=== PATIENT | male | born 1935 | race Caucasian/White ===

== ENCOUNTER → 2021-05-14 | Outpatient (CLI) | payer MEDICARE ==
[~2021-05-14] MED LIST: ?ANTIBIOTIC; ACET325T38 PO; AMOX500C2 PO; ARTHROTEC; ASP325T PO; ASP81CT; ASP81TEC PO; ATOR40TA PO; ATOR80TA64 PO; CATHETER FLUSH 10 ML SYR IV PRN; CEFU500T PO; CRS350T; GLUC1CAP37; HYDR1TAB PO; LNS30CCR; METH4TAB PO; MTP25TSR; MULT-608 PO; NAPR250T34; OMEP-10 PO; PANGESTYME; PANT40SU PO; PNT40TEC PO; REGADENOSON 0.4 MG/5 ML SYR (LEXISCAN) IV ONE; SCR1T1 PO; TRM50T PO; VYTORIN 10/40
[2021-05-14 09:03] VITALS: BP 163/75
--- NOTE | 2021-05-15 10:12 | STRESS TEST ---
DATE OF SERVICE: 05/14/2021 RESTING AND POST REGADENOSON TECHNETIUM-99M TETROFOSMIN SPECT CT IMAGING ORDERING PHYSICIAN: Dr. Bedoya. CLINICAL DIAGNOSES: Coronary artery disease. Baseline images were carried out after injection of 10.66 mCi of technetium-99m Tetrofosmin. This was followed by 0.4 mg regadenoson and 31.7 mCi of technetium-99m Tetrofosmin for stress imaging. The electrocardiogram showed sinus rhythm at baseline. There was left bundle branch block. The electrocardiogram did not change significantly with the regadenoson infusion. The patient tolerated the procedure well. Review of images at rest and following stress does not indicate any distinct perfusion defects consistent with significant myocardial ischemia or infarction. Some degree of diaphragmatic attenuation of the inferior wall is seen both at rest and following regadenoson infusion. Gated images show normal global left ventricular systolic function with normal regional wall motion, including the diaphragmatic wall of the left ventricle. Left ventricular ejection fraction is calculated to be 61%. CONCLUSIONS: 1. No evidence of any significant myocardial ischemia or infarction on this study. 2. Normal regional wall motion. 3. Normal global left ventricular systolic function with a calculated ejection fraction of 61%. Job ID: [id number] DocumentID: [id number] Dictated Date: 05/15/2021 08:31:43 Apiculturist Date: 05/15/2021 10:12:14 Dictated By: MELANI BEDOYA MD, MA, FACP, FACC,
== END ==
LOC: CARD 07:30
PROVIDERS: ATTEND Internal Medicine Cardiovascular Disease
DX: I25.10 Atherosclerotic heart disease of native coronary artery without angina pectoris (principal)
CPT/HCPCS: 78452; 93017; A9502